=== PATIENT | male | born 1965 | race Caucasian/White ===

== ENCOUNTER 2022-11-27 08:40 | Day surgery (SDC) | payer MEDICAID ==
[~2022-11-27 08:40] MED LIST: Lactated Ringers 1,000 ML IV SCH; ceFAZolin 2 GM in Sodium Chloride 0.9% 50 ML IV ONE
[2022-11-27] MEDS ORDERED: Ropivacaine 0.5% 5 MG/ML 30 ML SDV ONE (08:50)
[2022-11-27] MEDS ORDERED: Ketorolac 30 MG/ML SDV ONE (09:03)
[2022-11-27] MEDS ORDERED: Propofol 200 MG/20 ML SDV ONE (09:27)
[2022-11-27] MEDS ORDERED: fentaNYL 100 MCG/2 ML SDV ONE (09:27)
[2022-11-27] MEDS ORDERED: Lidocaine 2% 5 ML SDV ONE (09:29)
[2022-11-27] MEDS ORDERED: Dexmedetomidine 200 MCG/2 ML SDV ONE (09:29)
[2022-11-27] MEDS ORDERED: Rocuronium Bromide 50 MG/5 ML Syringe ONE ×3 (09:29→10:46)
[2022-11-27] MEDS ORDERED: Sugammadex Sodium 200 MG/2 ML VIAL ONE (09:29)
[2022-11-27] MEDS ORDERED: Dexamethasone 4 MG/ML 5 ML MDV ONE (09:29)
[2022-11-27] MEDS ORDERED: Ondansetron 4 MG/2 ML SDV ONE ×2 (09:29→10:22)
[2022-11-27] MEDS ORDERED: ceFAZolin 1 GM Vial ONE (09:32)
[2022-11-27] MEDS ORDERED: Bupivacaine 0.5% 30 ML SDV ONE (09:32)
[2022-11-27] MEDS ORDERED: HYDROmorphone 1 MG/ML Syringe IVPUSH PRN (09:46)
[2022-11-27] MEDS ORDERED: Ondansetron 4 MG/2 ML SDV IVPUSH PRN ×2 (09:46→11:45)
[2022-11-27] MEDS ORDERED: fentaNYL 50 MCG/ML SDV IVPUSH PRN (09:46)
[2022-11-27] MEDS ORDERED: Morphine 2 MG/ML SYRINGE IVPUSH PRN (09:46)
[2022-11-27] MEDS ORDERED: Metoclopramide 10 MG/2 ML SDV IVPUSH PRN (09:46)
[2022-11-27] MEDS ORDERED: Albuterol 0.083% 2.5 MG/3 ML Neb Soln NEB PRN (09:46)
[2022-11-27] MEDS ORDERED: Naloxone 0.4 MG/ML SDV IVPUSH PRN (09:46)
[2022-11-27] MEDS ORDERED: Water For Injection, Sterile 20 ML ONE (10:05)
[2022-11-27] MEDS ORDERED: ceFAZolin 2 GM Vial ONE (10:05)
[2022-11-27] MEDS ORDERED: Magnesium Sulfate (4.06 MEQ/ML) 5 GM/10 ML SDV ONE (10:14)
[2022-11-27] MEDS ORDERED: ePHEDrine 50 MG/ML SDV ONE (10:33)
[2022-11-27] MEDS ORDERED: Morphine 4 MG/ML Syringe IVPUSH PRN (11:45)
[2022-11-27] MEDS ORDERED: Lactated Ringers 1,000 ML IV SCH (11:45)
[2022-11-27] MEDS ORDERED: Acetaminophen/HYDROcodone 325-5 MG Tab PO PRN (11:45)
== END 2022-11-27 12:50 | disposition home or self-care (01) ==
LOC: MW.SDS 08:40
PROVIDERS: ATTEND Surgery
DX: K40.30 Unilateral inguinal hernia, with obstruction, without gangrene, not specified as recurrent (principal); F17.210 Nicotine dependence, cigarettes, uncomplicated
CPT/HCPCS: 49507; J0131; J0690; J1100; J1885; J2704; J2795; J3010; J3475; J3490; J7120; 00830; 64486; C1781; J2405